=== PATIENT | male | born 1960 | race African-American/Black ===

== ENCOUNTER 2018-03-11 13:58 | Emergency (ER) | payer OTHER ==
[~2018-03-11] VITALS: Ht 170.2 cm; Wt 77.1 kg
[2018-03-11 14:17] VITALS: BP 155/104
[2018-03-11] MEDS ORDERED: TETANUS-DIPTH-ACEL PERTUSSIS 0.5ML SYRG IM ONE (14:45)
== END 2018-03-11 15:28 | disposition home or self-care (01) ==
LOC: ER 13:58
DX: S71.112A Laceration without foreign body, left thigh, initial encounter (principal); W45.8XXA Other foreign body or object entering through skin, initial encounter; Y93.89 Activity, other specified; Y92.89 Other specified places as the place of occurrence of the external cause; Y99.8 Other external cause status
CPT/HCPCS: 12002; 90471; 90715